=== PATIENT | male | born 1975 | race Caucasian/White ===

== ENCOUNTER 2021-09-27 13:16 | Emergency (ER) | payer OTHER, SELFPAY ==
[2021-09-27 13:28] VITALS: BP 130/88; PULSE 94; RESP 16; TEMP 36.7; O2SAT 100
--- NOTE | 2021-09-27 13:46 | ED.EXTPRO ---
HPI - Extremity Problem General Chief complaint: Extremity Injury, Upper Stated complaint: right elbow pain Time Seen by Provider: 09/27/21 13:40 Source: patient and RN notes reviewed Mode of arrival: ambulatory Limitations: no limitations History of Present Illness HPI Narrative: Yunior is a 46-year-old male patient who ambulated into the [facility]. Patient states he has a long history of psoriatic arthritis and pseudogout. Patient states they recently took him off Humira and started a new medication. In July patient had swelling, redness, and pain to his left ankle. Uric acid was negative. Patient was diagnosed with pseudogout and treated with prednisone and indomethacin. Patient states 3 days ago his right upper arm started hurting. Patient sta states he thought it was present playing volleyball. This morning his right elbow is swollen and red. Patient states this is just like it was in July. Patient did call his washer and crusher tender for appointment and was any unable to be seen today. Patient does have a follow-up appointment this week. MD Complaint: extremity swelling Related Data Home Medications Medication Instructions Recorded Confirmed adalimumab [Humira(CF) Pen] mg SUBCUT 09/27/21 doxycycline hyclate 09/27/21 metformin mg 09/27/21 Allergies Allergy/AdvReac Type Severity Reaction Status Date / Time No Known Allergies Allergy Verified 09/27/21 13:43 Review of Systems Review of Systems: CONSTITUTIONAL: Denies body aches, fever, chills, or sweats. EYES: Denies visual changes, redness, or discharge. ENT: Denies rhinorrhea, congestion, sore throat, or otalgia. CARDIOVASCULAR: Denies chest pain, palpitations, or edema. RESPIRATORY: Denies cough or dyspnea. GASTROINTESTINAL: Denies abdominal pain, nausea, vomiting, or diarrhea. GENITOURINARY: Denies dysuria or hematuria. SKIN: Denies rash, itching, or wounds. MUSCULOSKELETAL: Denies back pain, + right elbow pain, or myalgia. NEUROLOGIC: Denies headache, numbness, tingling, or weakness. PSYCH: Denies depression or anxiety. All systems reviewed & are unremarkable except as noted in HPI and below PMFSH Comments At time of signature, I have reviewed and agree with nursing past medical, surgical, social and family history unless otherwise noted. Please see nursing chart for further information. There is no relevant family history pertinent to the presenting complaint Exam Narrative: GENERAL: Well-appearing, well-nourished, and in no acute distress. HEAD: Normocephalic, atraumatic. EYES: EOMI. No redness or drainage. Conjunctivae normal. ENT: Mucous membranes pink and moist. Nares clear. NECK: Normal AROM. Supple. No lymphadenopathy. CHEST: No respiratory distress. Clear to auscultation. MUSCULOSKELETAL: No bony tenderness. EXTREMITIES: Normal range of motion. right elbow edematous, erythemic, and warm to touch, SKIN: Warm, dry, no rash. Capillary refill normal. Normal skin turgor. NEURO: No focal deficits. Alert and oriented x3. Gait steady. PSYCH: Normal affect. No signs of depression or anxiety. Course Vital Signs Vital signs: Vital Signs Temperature 36.7 C 09/27/21 13:28 Pulse Rate 94 09/27/21 13:28 Respiratory Rate 16 09/27/21 13:28 Blood Pressure 130/88 09/27/21 13:28 Pulse Oximetry 100 09/27/21 13:28 Temperature 36.7 C 09/27/21 13:28 Pulse Rate 94 09/27/21 13:28 Respiratory Rate 16 09/27/21 13:28 Blood Pressure 130/88 09/27/21 13:28 Pulse Oximetry 100 09/27/21 13:28 Reviewed. Pt has been instructed to follow up with his PCP regarding his elevated blood pressure today. MDM - Extremity (Nontraumatic) MDM Narrative Medical decision making narrative: Patient has a history of psoriatic arthritis. Patient had a pseudogout flareup 2 months ago. With similar symptoms. Patient will be treated for pseudogout. And patient will follow up at scheduled appointment with his washer and crusher tender.
== END 2021-09-27 14:00 | disposition home or self-care (01) ==
PROVIDERS: Emergency Provider Nurse Practitioner Family; PCP Internal Medicine
DX: M10.9 Gout, unspecified (principal); L40.50 Arthropathic psoriasis, unspecified
CPT/HCPCS: 99203; G0463